=== PATIENT | male | born 1940 | race Caucasian/White ===

== ENCOUNTER → 2016-09-14 | Outpatient (CLI) | payer MEDICARE, OTHER ==
[~2016-09-14] MED LIST: ASPIRIN 32325 MG/TAB PO; COLACE 100100 MG/CAP PO; FLOMAX 0.40.4 MG/CAP PO; MULTI VITAMINS1 TAB PO; PERCOCET 325 MG1 TA2 PO; PRILOSEC10 MG PO; REVLIMID10 MG PO; ULTRAM 50MG TAB50 MG PO; VITAMIN B COMPL1 T16 PO; VITAMIN D 1001000 IU PO; XARELTO10 MG PO; ZOVIRAX 200MG200 MG PO
== END ==
LOC: COL.VAS 12:30
DX: I82.412 Acute embolism and thrombosis of left femoral vein (principal); I82.432 Acute embolism and thrombosis of left popliteal vein

== ENCOUNTER → 2017-12-04 | Outpatient (CLI) | payer MEDICARE, OTHER | LOC: COL.RAD 09:24 | DX: I71.4 Abdominal aortic aneurysm, without rupture (principal) ==

== ENCOUNTER → 2017-12-19 | Outpatient (CLI) | payer MEDICARE, OTHER | LOC: COL.RAD 10:00 | DX: C90.01 Multiple myeloma in remission (principal); M47.812 Spondylosis without myelopathy or radiculopathy, cervical region; M85.88 Other specified disorders of bone density and structure, other site; M16.0 Bilateral primary osteoarthritis of hip; M47.816 Spondylosis without myelopathy or radiculopathy, lumbar region ==

== ENCOUNTER 2018-03-12 18:38 | Emergency (ER) | payer MEDICARE, OTHER ==
[~2018-03-12] VITALS: Wt 80.0 kg
[2018-03-12 18:44] VITALS: TEMP 97.7
[2018-03-12] MEDS ORDERED: XARELTO10 MG PO (19:09)
[2018-03-12 19:34] LABS: GRAN # 1.5 (1.4-6.5); GRAN % 51.6 % (42.2-75.2); HEMOGLOBIN 12.3 g/dl (13.5-18.0); LYMPH # 1.1 (1.2-3.4); LYMPH % 35.6 % (20.0-51.0); MEAN CELL VOLUME 102 fl (80.0-100.0); MEAN CORPUSCULAR HEMOGLOBIN 35 pg (27.0-31.0); MEAN CORPUSCULAR HGB CONC 34 g/dl (33.0-37.0); MEAN PLATELET VOLUME 10.5 fl (7.4-10.4); MONO # 0.3 (0.1-0.6); MONO % 10.5 % (1.7-9.3); PLATELET COUNT 89 K/mm3 (130-400); RED BLOOD COUNT 3.52 M/mm3 (4.20-5.60); REDCELL DISTRIBUTION WIDTH-CV 15.4 % (11.5-14.5)
[2018-03-12 19:36] LABS: HEMATOCRIT 35.8 % (42.0-52.0)
[2018-03-12 19:43] LABS: BILIRUBIN,TOTAL 1.1 mg/dL (0.0-1.0); C-REACTIVE PROTEIN 0.9 mg/dL (0.0-0.9); CALCIUM 8.9 mg/dL (8.4-10.2); CREATININE, serum 1.08 mg/dL (0.66-1.25); POTASSIUM 3.7 mmol/L (3.4-5.0); TOTAL PROTEIN 6.7 gm/dL (6.4-8.2)
[2018-03-12 20:01] LABS: COLLECTION METHOD CLEAN CATCH
[2018-03-12 20:07] LABS: PH 6 (5-8); SQUAMOUS EPITHELIAL None Seen /hpf; URINE APPEARANCE Clear; URINE BACTERIA None Seen /hpf; URINE BILIRUBIN Negative (NEGATIVE); URINE BLOOD Negative (NEGATIVE); URINE COLOR Yellow; URINE GLUCOSE Negative (NEGATIVE); URINE KETONE Trace (NEGATIVE); URINE LEUKOCYTE ESTERASE Negative (NEGATIVE); URINE NITRATE Negative (NEGATIVE); URINE PROTEIN(semi-quant) Negative (NEGATIVE); URINE UROBILINOGEN Negative (NEGATIVE)
[2018-03-12 22:00] VITALS: BP 162/82; PULSE 42
== END 2018-03-12 22:00 | disposition home or self-care (01) ==
LOC: COL.ER 18:38
PROVIDERS: Family Medicine
DX: K44.9 Diaphragmatic hernia without obstruction or gangrene (principal); K80.80 Other cholelithiasis without obstruction; I71.4 Abdominal aortic aneurysm, without rupture; Z79.02 Long term (current) use of antithrombotics/antiplatelets
CPT/HCPCS: J1885; J2405; J7030; Q9967

== ENCOUNTER 2018-03-15 16:59 | Observation (INO) | payer MEDICARE ==
[~2018-03-15] VITALS: Ht 172.7 cm; Wt 80.9 kg
[2018-03-15 17:15] VITALS: BP 106/71; PULSE 54; TEMP 98
[2018-03-15 18:26] LABS: HEMATOCRIT 37.9 % (42.0-52.0); HEMOGLOBIN 12.9 g/dl (13.5-18.0); MEAN CELL VOLUME 101 fl (80.0-100.0); MEAN CORPUSCULAR HEMOGLOBIN 35 pg (27.0-31.0); MEAN CORPUSCULAR HGB CONC 34 g/dl (33.0-37.0); MEAN PLATELET VOLUME 10.6 fl (7.4-10.4); PLATELET COUNT 85 K/mm3 (130-400); RED BLOOD COUNT 3.74 M/mm3 (4.20-5.60); REDCELL DISTRIBUTION WIDTH-CV 15.3 % (11.5-14.5)
[2018-03-15 18:43] LABS: ALANINE AMINOTRANSFERASE 55 U/L (21-72); ALBUMIN 4.4 gm/dL (3.5-5.0); ALKALINE PHOSPHATASE 97 U/L (50-136); ANION GAP 14 mmol/L (7-16); AST,SGOT 42 U/L (15-37); BILIRUBIN,TOTAL 1.9 mg/dL (0.0-1.0); BLOOD UREA NITROGEN 27 mg/dL (9-20); CALCIUM 9.2 mg/dL (8.4-10.2); CARBON DIOXIDE 25 mmol/L (22-30); CHLORIDE 94 mmol/L (98-107); CREATININE, serum 1.81 mg/dL (0.66-1.25); GLUCOSE 110 mg/dL (74-106); POTASSIUM 3.9 mmol/L (3.4-5.0); SODIUM 133 mmol/L (137-145); TOTAL PROTEIN 7.6 gm/dL (6.4-8.2)
[2018-03-15 18:51] LABS: LIPASE < 10 U/L (23-300)
[2018-03-15 19:18] VITALS: BP 104/86; PULSE 71; TEMP 98.1
[2018-03-15 19:38] LABS: ANISOCYTOSIS 1+; BAND 3 % (0-10); LYMPHOCYTE 28 % (20.0-51.0); NEUTROPHILS 66 % (42.0-75.2); PLATELET ESTIMATE NORMAL (NORMAL)
[2018-03-15 23:30] VITALS: BP 93/39; PULSE 42; TEMP 97.4
[2018-03-16] VITALS (11 sets, daily range): BP systolic 103–118; BP diastolic 51–69; PULSE 41–62; TEMP 97.6–98.8
[2018-03-16 07:58] LABS: CALCIUM 7.9 mg/dL (8.4-10.2); CREATININE, serum 1.33 mg/dL (0.66-1.25); POTASSIUM 3.2 mmol/L (3.4-5.0)
[2018-03-17 00:20] VITALS: BP 105/56; PULSE 77; TEMP 97.7
[2018-03-17 04:41] VITALS: BP 120/73; PULSE 36; TEMP 98.5
[2018-03-17 08:15] VITALS: BP 131/62; PULSE 42; TEMP 97.5
[2018-03-17 12:12] VITALS: BP 120/66; PULSE 43; TEMP 97.5
== END 2018-03-17 16:35 | disposition home or self-care (01) ==
LOC: SDCO 16:59 → SURG 17:00 → MEDICAL 03-16 05:20 → SURG 03-16 05:20 → SDCO 03-16 12:30 → SURG 03-17 16:35
PROVIDERS: Surgery
DX: K80.00 Calculus of gallbladder with acute cholecystitis without obstruction (principal); C90.01 Multiple myeloma in remission; Z79.899 Other long term (current) drug therapy; Z79.01 Long term (current) use of anticoagulants; K44.9 Diaphragmatic hernia without obstruction or gangrene; Z86.718 Personal history of other venous thrombosis and embolism
CPT/HCPCS: A9284; G0378; G0379; J1100; J1885; J1956; J2405; J2704; J2765; J7040; J7042; J7120; Q9967

== ENCOUNTER 2018-09-05 13:57 | Emergency (ER) | payer MEDICARE ==
[~2018-09-05] VITALS: Ht 172.7 cm; Wt 77.3 kg
[2018-09-05 14:10] VITALS: TEMP 98.9
[2018-09-05] MEDS ORDERED: BACTRIM DS 8001 TAB PO (16:14)
[2018-09-05 16:20] VITALS: BP 132/76; PULSE 60
== END 2018-09-05 16:23 | disposition home or self-care (01) ==
LOC: COL.ER 13:57
DX: J06.9 Acute upper respiratory infection, unspecified (principal); Z98.890 Other specified postprocedural states; Z87.891 Personal history of nicotine dependence

== ENCOUNTER 2019-09-12 13:05 | Emergency (ER) | payer MEDICARE ==
[~2019-09-12] VITALS: Ht 172.7 cm; Wt 79.5 kg
[~2019-09-12 13:05] MED LIST changes: +BACTRIM DS 8001 TAB PO
[2019-09-12 15:31] LABS: BASO % 0.8 % (0.0-2.0); EOS % 0.8 % (0-4.0); GRAN # 1.4 (1.4-6.5); GRAN % 35.3 % (42.2-75.2); HEMATOCRIT 43.4 % (42.0-52.0); HEMOGLOBIN 14.7 g/dl (13.5-18.0); LYMPH # 2.1 (1.2-3.4); MEAN CELL VOLUME 99 fl (80.0-100.0); MEAN CORPUSCULAR HEMOGLOBIN 34 pg (27.0-31.0); MEAN CORPUSCULAR HGB CONC 34 g/dl (33.0-37.0); MEAN PLATELET VOLUME 10.8 fl (7.4-10.4); MONO # 0.4 (0.1-0.6); MONO % 9.8 % (1.7-9.3); PLATELET COUNT 118 K/mm3 (130-400); RED BLOOD COUNT 4.37 M/mm3 (4.20-5.60); REDCELL DISTRIBUTION WIDTH-CV 14.8 % (11.5-14.5)
[2019-09-12 15:45] LABS: ALBUMIN 4.4 gm/dL (3.5-5.0); BILIRUBIN,TOTAL 0.8 mg/dL (0.0-1.0); C-REACTIVE PROTEIN 3.1 mg/dL (0.0-0.9); CALCIUM 9.2 mg/dL (8.4-10.2); CREATININE, serum 1.51 (0.66-1.25); POTASSIUM 3.2 mmol/L (3.4-5.0); TOTAL PROTEIN 7.4 gm/dL (6.4-8.2)
[2019-09-12] MEDS ORDERED: VANTIN 200200 MG/TAB PO (15:54)
[2019-09-12] MEDS ORDERED: ZITHROMAX Z PA250 MG PO (15:54)
[2019-09-12 16:35] VITALS: BP 121/85; PULSE 78; TEMP 98
== END 2019-09-12 16:35 | disposition home or self-care (01) ==
LOC: COL.ER 13:05
PROVIDERS: Physician Assistant
DX: J18.9 Pneumonia, unspecified organism (principal); Z90.89 Acquired absence of other organs; Z88.0 Allergy status to penicillin; Z79.01 Long term (current) use of anticoagulants

== ENCOUNTER → 2020-02-13 | Outpatient (CLI) | payer MEDICARE ==
[~2020-02-13] MED LIST changes: +VANTIN 200200 MG/TAB PO; +ZITHROMAX Z PA250 MG PO
== END ==
LOC: COL.VAS 11:03
DX: C90.01 Multiple myeloma in remission (principal); M79.89 Other specified soft tissue disorders; I82.502 Chronic embolism and thrombosis of unspecified deep veins of left lower extremity

== ENCOUNTER → 2020-09-29 | Outpatient (CLI) | payer MEDICARE | LOC: COL.RAD 07:55 | DX: I71.4 Abdominal aortic aneurysm, without rupture (principal) | CPT/HCPCS: A9585 ==

== ENCOUNTER → 2021-01-26 | Outpatient (CLI) | payer MEDICARE ==
[~2021-01-26] MED LIST changes: +LASIX 20MG TABL20 MG PO; +LOPRESSOR 225 MG/TAB PO; +VITAMIN D31000 I1 PO; +ZYPREXA 5MG5 MG PO
--- NOTE | 2021-03-27 18:13 | NUR ---
PTS ARRIVED TO FLOOR AT 1640 AND IMMEDIATELY BEGAN TO DRESS PATIENT, PT REMAINED DISORIENTED AND WAS UPSET AND UNCOOPERATIVE. THIS NURSE ASSISTED PT'S "JAKE" GET THE PATIENT READY FOR DISCHARGE. JAKE STATED " RICKI I AM GETTING YOU OUT OF HERE AND NOT PUTTING YOU SOMEWHERE YOU CANT SEE FAMILY, YOU WILL GET WORSE". JAKE ASKED THIS NURSE FOR THE DOCTORS NAME AND TOLD NURSE SHE WAS UPSET, WHEN THIS NURSE INQUIRED JAKE DID NOT REPLY. THIS NURSE ATTEMPTED TO HELP ALLEVIATE ANY ISSUES JAKE MAY HAVE HAD SHE WAS NOT RESPONSIVE. PT ESCORTED OUT OF BUILDING AT 1700 WITH JAKE AND MEDICAL STAFF AT 1700. NO IV INT, NO TELE MONITOR WAS ON PATIENT TO DC.
== END ==
LOC: COL.VAS 12:50
DX: G45.9 Transient cerebral ischemic attack, unspecified (principal); I34.0 Nonrheumatic mitral (valve) insufficiency; I51.7 Cardiomegaly